=== PATIENT | male | born 1985 | race Caucasian/White ===

== ENCOUNTER 2020-12-17 22:33 | Emergency (ER) | payer OTHER ==
[~2020-12-17] VITALS: Ht 182.9 cm; Wt 112.9 kg
[2020-12-17 23:23] LABS: BASO # 0.1 10^3/uL (0.0-0.2); BASO % 0.9 % (0.0-1.0); EOS # 0.3 10^3/uL (0.0-0.5); EOS % 3.2 % (0.0-3.0); HEMATOCRIT 41.4 % (42.0-52.0); HEMOGLOBIN 13.9 g/dl (13.5-17.5); LYMPH # 3.2 10^3/uL (1.5-5.0); MEAN CORPUSCULAR HEMOGLOBIN 30.6 pg (27.0-33.0); MEAN CORPUSCULAR HGB CONC 33.6 g/dl (32.0-36.5); MEAN CORPUSCULAR VOLUME 91.2 fl (80.0-96.0); MONO # 0.7 10^3/uL (0.0-0.8); MONO % 8.3 % (2.0-8.0); NEUTROPHILS # 4.5 10^3/uL (1.5-8.5); NEUTROPHILS % 51.4 % (36.0-66.0); PLATELET COUNT, AUTOMATED 268 10^3/uL (150-450); RED BLOOD COUNT 4.54 10^6/uL (4.30-6.10); WHITE BLOOD COUNT 8.8 10^3/uL (4.0-10.0)
--- NOTE | 2020-12-17 23:41 | REPVR ---
PROCEDURE INFORMATION: Exam: XR Chest Exam date and time: 12/17/2020 11:09 PM Age: 35 years old Clinical indication: Pain; Other: Unspecified; Additional info: Chest pain TECHNIQUE: Imaging protocol: XR of the chest. Views: 1 view. COMPARISON: No relevant prior studies available. FINDINGS: Lungs: Unremarkable. No consolidation and no focal infiltrates. Pleural spaces: Unremarkable. No pleural effusion. No pneumothorax. Heart/Mediastinum: Unremarkable. No cardiomegaly. Bones/joints: Unremarkable. IMPRESSION: Negative lordotic chest. Electronically signed by: Tanmay Christopher On 12/17/2020 23:41:16 PM
[2020-12-17 23:54] LABS: ALBUMIN 3.5 GM/DL (3.2-5.2); ALT/SGPT 54 U/L (12-78); BILIRUBIN,DIRECT < 0.1 MG/DL (0.0-0.2); BILIRUBIN,TOTAL 0.1 MG/DL (0.2-1.0); BLOOD UREA NITROGEN 17 MG/DL (7-18); CARBON DIOXIDE LEVEL 25 MEQ/L (21-32); CHLORIDE LEVEL 113 MEQ/L (98-107); CK-MB VALUE MASS < 1.0 NG/ML (<3.6); CPK CREATINE PHOSPHOKINASE 128 U/L (39-308); CREATININE FOR GFR 1.02 MG/DL (0.70-1.30); GLOMERULAR FILTRATION RATE > 60.0 (>60); GLUCOSE, FASTING 109 MG/DL (70-100); LIPASE 151 U/L (73-393); MB/CK RELATIVE INDEX 0.78 (< OR =4); POTASSIUM SERUM 3.9 MEQ/L (3.5-5.1); SODIUM LEVEL 143 MEQ/L (136-145); TOTAL PROTEIN 6.6 GM/DL (6.4-8.2); TROPONIN I < 0.02 NG/ML (< 0.10)
[2020-12-18] VITALS: BP 122/60
[2020-12-18] MEDS ORDERED: COMBIVENT RESPIMAT 100-20MCG INHALER 4GM INH ONE
[2020-12-18] MEDS ORDERED: dexameTHASONE 20MG/5ML VIAL (J1100 PER 1MG) IV ONE
[2020-12-18] MEDS ORDERED: ISOVUE-370 76% 100ML VIAL As Ordered ONE (00:02)
--- NOTE | 2020-12-18 00:35 | REPVR ---
PROCEDURE INFORMATION: Exam: CTA Chest With Contrast Exam date and time: 12/17/2020 11:57 PM Age: 35 years old Clinical indication: Pain; Additional info: Chest pain TECHNIQUE: Imaging protocol: Computed tomographic angiography of the chest with contrast. 3D rendering (Not supervised by radiologist): MIP and/or 3D reconstructed images were created by the technologist. Radiation optimization: All CT scans at this facility use at least one of these dose optimization techniques: automated exposure control; mA and/or kV adjustment per patient size (includes targeted exams where dose is matched to clinical indication); or iterative reconstruction. Contrast material: ISO; Contrast volume: 75 ml; Contrast route: INTRAVENOUS (IV); COMPARISON: CR PORTABLE CHEST X-RAY 12/17/2020 11:02 PM FINDINGS: Pulmonary arteries: The main pulmonary artery measures 26 mm. No pulmonary embolism is identified. Aorta: The ascending thoracic aorta measures 32 mm. Lungs: Minimal nodular density adjacent to the cephalad aspect of the right major fissure measuring 5 mm. Minimal fibro-atelectatic change in the lingula. 4 mm subpleural nodule in the posterolateral left lower lobe slight pleural thickening at along the left major fissure. Minimal subpleural nodule in the posterior left apex measuring 5 mm and minimal nodule in the lateral left apex measuring 4 mm. Pleural spaces: Unremarkable. No pneumothorax. No pleural effusion. Heart: Unremarkable. No cardiomegaly. No pericardial effusion. Mediastinal space: There is soft tissue conforming to the anterior mediastinum consistent with residual thymic tissue. Lymph nodes: Unremarkable. No enlarged lymph nodes. Stomach and bowel: Mild distention of the stomach with food material. Bones/joints: Unremarkable. No acute fracture. Soft tissues: Unremarkable. IMPRESSION: 1. Minimal bilateral subpleural nodules measuring up to 5 mm. For patients at low risk (minimal or absent history of smoking and of other known risk factors), no routine follow-up is indicated. For patients at high risk (history of smoking or of other known risk factors), consider optional CT Chest at 12 months. (Reference: Shona) 2. There is mild gastric distention with food material which may reflect recent ingestion. Gastric atony or relative outlet obstruction are not excluded. 3. Otherwise negative CTA chest. No pulmonary embolism is identified. REFERENCES: Shona Horn, et al. Guidelines for Management of Incidental Pulmonary Nodules Detected on CT Images: From the Fleischner Society 2017. Radiology. 2017;284(1):228-243. Electronically signed by: Tanmay Christopher On 12/18/2020 00:34:46 AM
[2020-12-18 01:07] LABS: RSV AMPLIFICATION NEGATIVE (NEGATIVE)
[2020-12-18 01:43] LABS: CK-MB VALUE MASS < 1.0 NG/ML (<3.6); CPK CREATINE PHOSPHOKINASE 109 U/L (39-308); MB/CK RELATIVE INDEX 0.92 (< OR =4); TROPONIN I < 0.02 NG/ML (< 0.10)
[2020-12-18] MEDS ORDERED: PRED20TA PO (02:27)
[2020-12-18] MEDS ORDERED: PROV108A INH (02:27)
[2020-12-18] MEDS ORDERED: KETO10TAB PO (05:51)
--- NOTE | 2020-12-18 18:25 | ED PDOC ---
Post-Departure Follow-Up cta chest faxed to [facility] for fu Ana Barillas MD Dec 18, 2020 18:25
--- NOTE | 2020-12-18 19:43 | ECGEPIP ---
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
--- NOTE | 2020-12-18 19:45 | ECGEPIP ---
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
== END 2020-12-18 02:39 | disposition home or self-care (01) ==
LOC: M ED 22:33
DX: R07.89 Other chest pain (principal); R91.1 Solitary pulmonary nodule; J45.909 Unspecified asthma, uncomplicated; F17.210 Nicotine dependence, cigarettes, uncomplicated
CPT/HCPCS: 71045; 71275; 80048; 80076; 82550; 82553; 83690; 84484; 85025; 87631; 93005; 93041; 94640; 94760; 96374; 99285; J1100; Q9967